=== PATIENT | male | born 1960 | race Caucasian/White ===

== ENCOUNTER → 2016-07-18 | Outpatient (CLI) | payer BC ==
[~2016-07-18] MED LIST: ASPI325T45 PO; ATEN-173 PO; ENAL5TAB83 PO; NSP500 PO; NTRGSL/4 UT; SIMV40TA2 PO
[2016-07-18 10:25] LABS: CHOLESTEROL/HDL RATIO 3.7
== END | disposition home or self-care (01) ==
LOC: C.LAB1850 08:59
PROVIDERS: ATTEND Internal Medicine Cardiovascular Disease
DX: E78.00 Pure hypercholesterolemia, unspecified (principal); I25.10 Atherosclerotic heart disease of native coronary artery without angina pectoris

== ENCOUNTER → 2017-02-06 | Outpatient (CLI) | payer BC | END | disposition home or self-care (01) | LOC: C.LAB1850 07:10 | PROVIDERS: ATTEND Internal Medicine Cardiovascular Disease | DX: I10 Essential (primary) hypertension (principal); I71.2 Thoracic aortic aneurysm, without rupture; R06.02 Shortness of breath; R94.39 Abnormal result of other cardiovascular function study ==

== ENCOUNTER → 2017-09-24 | Outpatient (CLI) | payer OTHER ==
[~2017-09-24] MED LIST changes: +ASPECOTC PO; -ASPI325T45 PO; +OPTIRAY 320 IV PRN
[2017-09-24 11:02] LABS: BASO % 0.7 %; BASO ABS # 0.05 K/uL (0-0.2); EOS % 4.7 %; EOS ABS # 0.33 K/uL (0-0.5); HEMATOCRIT 43.8 % (42-52); IG# 0.01 K/uL (0.00-0.02); LYMPH % 22.3 %; LYMPH ABS # 1.57 K/uL (1.2-3.4); MEAN CELL VOLUME 89.8 fL (80-100); MEAN CORPUSCULAR HEMOGLOBIN 30.7 pg (25-34); MEAN PLATELET VOLUME 10.5 fL (7.4-10.4); MONO % 12.9 %; MONO ABS # 0.91 K/uL (0.11-0.59); NEUT % 59.3 %; NEUT ABS # 4.17 K/uL (1.4-6.5); PLATELET COUNT 145 K/uL (130-400); RED CELL DISTRIBUTION WIDTH CV 13.1 % (11.5-14.5); RED CELL DISTRIBUTION WIDTH SD 42.8 fL (36.4-46.3); WHITE BLOOD COUNT 7.04 K/uL (4.8-10.8)
[2017-09-24 11:09] LABS: MEAN CORPUSCULAR HGB CONC 34.2 g/dl (32-36)
[2017-09-24 11:29] LABS: ALBUMIN 3.8 gm/dl (3.4-5.0); ALT/SGPT 33 U/L (12-78); AST/SGOT 22 U/L (15-37); BLOOD UREA NITROGEN 19 mg/dl (7-18); CALCIUM 9.2 mg/dl (8.5-10.1); CARBON DIOXIDE 28 mmol/L (21-32); CREATININE 0.97 mg/dl (0.60-1.40); GLUCOSE 129 mg/dl (70-99); POTASSIUM 4.4 mmol/L (3.5-5.1); SODIUM 139 mmol/L (136-145)
[2017-09-24 11:30] LABS: ALKALINE PHOSPHATASE 64 U/L (45-117); TOTAL PROTEIN 7.1 gm/dl (6.4-8.2)
--- NOTE | 2017-09-24 13:06 | DIAGNOSTIC IMAGING REPORT ---
ABD/PELVIS IV AND ORAL CONT CT DOSE: 557.29 mGy.cm HISTORY: Pain R/O APPY TECHNIQUE: Multiaxial CT images of the abdomen and pelvis were performed following the use of intravenous and oral contrast. A dose lowering technique was utilized adhering to the principles of ALARA. COMPARISON STUDY: 10/05/2014 FINDINGS: Minimal bibasilar interstitial change bilaterally. Mild fatty replacement of the liver. Liver spleen and pancreas appear unremarkable. The bowel pattern is considered nonobstructive. Appendix is normal. There is an increased fecal load within the bulk of the colon. This is consistent with fecal stasis. There are findings of acute proximal to mid sigmoid diverticulitis. Moderate pericolonic infiltrative changes present. No evidence for drainable abscess or collection. There are no obstructive changes. IMPRESSION: 1. Acute proximal to mid sigmoid diverticulitis. 2. Mild/moderate pericolonic infiltrative change with no evidence for abscess collection or obstruction. 3. Increased colonic fecal load consistent with a component of fecal stasis. 4. Normal appendix. The above report was generated using voice recognition software. It may contain grammatical, syntax or spelling errors. Electronically signed by: Live Robles M.D. 09/24/2017 1:05 PM Dictated Date/Time: 09/24/2017 1:03 PM
== END | disposition home or self-care (01) ==
LOC: C.CTS 09:02
PROVIDERS: ATTEND Family Medicine
DX: R10.30 Lower abdominal pain, unspecified (principal)